=== PATIENT | female | born 1960 ===

== ENCOUNTER 2018-08-15 10:25 | Emergency (ER) | payer BC, OTHER ==
[2018-08-15 10:26] VITALS: BMI 33.2
[2018-08-15 10:47] VITALS: RESP 18
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
--- NOTE | 2018-08-15 12:42 | RAD ---
Date of service: 08/15/2018 PROCEDURE: Cervical Spine Radiographs. HISTORY: Pain. COMPARISON: None. FINDINGS: BONES: Alignment maintained. No fracture. Dens Intact. DISC SPACES: Normal. SOFT TISSUES: Normal. No prevertebral soft tissue swelling. OTHER FINDINGS: None. IMPRESSION: Normal cervical spine radiographs
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
[2018-08-15 13:13] VITALS: BP 150/90; PULSE 84; TEMP 98.1; O2SAT 98
== END 2018-08-15 13:14 | disposition home or self-care (01) ==
LOC: ED 10:25
DX: S13.4XXA Sprain of ligaments of cervical spine, initial encounter (principal); V04.09XA Pedestrian with other conveyance injured in collision with heavy transport vehicle or bus in nontraffic accident, initial encounter; Y92.410 Unspecified street and highway as the place of occurrence of the external cause; R51 Headache